=== PATIENT | female | born 1945 ===

== ENCOUNTER 2018-08-18 13:56 | Emergency (ER) | payer MEDICARE, OTHER ==
[2018-08-18 13:57] VITALS: BMI 22.2
[2018-08-18 14:23] VITALS: BP 180/79; PULSE 68; RESP 18; TEMP 98.1; O2SAT 98
[2018-08-18] MEDS ORDERED: Lidocaine 5% Patch TD STA (14:53)
--- NOTE | 2018-08-18 15:02 | C.PDOC ---
History Of Present Illness 73 y/o female with PMHx of osteopenia and arthritis presents to the ED complaining of atraumatic joint pain worsening for the past 3 days. She reports initially she had pain in the left arm/shoulder and began attending physical therapy. She notes for the last 3 weeks, she developed pain to the right shoulder and upper back, now described as sharp and shooting. Also complaining of joint pain in the right elbow and right fingers, associated with some swelling. No numbness, tingling, or focal weakness. She reports taking Tylenol w ithout relief. Time Seen by Provider: 08/18/18 14:24 Chief Complaint (Nursing): Upper Extremity Problem/Injury History Per: Patient History/Exam Limitations: no limitations Onset/Duration Of Symptoms: Days Current Symptoms Are (Timing): Worse Quality: Sharp Past Medical History Reviewed: Historical Data, Nursing Documentation, Vital Signs Vital Signs: Last Vital Signs Temp 98.1 F 08/18/18 14:19 Pulse 68 08/18/18 14:19 Resp 18 08/18/18 14:19 BP 180/79 H 08/18/18 14:19 Pulse Ox 98 08/18/18 14:19 - Medical History PMH: Arthritis, Asthma Surgical History: Denies: Pacemaker Other Surgeries: Hysterectomy, Thyroidectomy - [facility] COLONOSCOPY (09/13/98) ENDOSC POLYPECTOMY OF LG INTEST (08/12/03) EXCIS LESION OF MUSCLE (11/03/13) UNILAT THYROID LOBECTOMY (04/03/01) Family History: States: No Known Family Hx - Social History Hx Tobacco Use: No Hx Alcohol Use: No Hx Substance Use: No - Immunization History Hx Tetanus Toxoid Vaccination: No Hx Influenza Vaccination: Yes Hx Pneumococcal Vaccination: No Review Of Systems Constitutional: Negative for: Fever Cardiovascular: Negative for: Chest Pain Respiratory: Negative for: Shortness of Breath Musculoskeletal: Positive for: Shoulder Pain, Arm Pain, Back Pain, Hand Pain Neurological: Negative for: Weakness, Numbness, Incoordination Physical Exam - Physical Exam Appears: Non-toxic, No Acute Distress Skin: Warm, Dry, No Rash Head: Atraumatic, Normacephalic Eye(s): bilateral: Normal Inspection, PERRL, EOMI Oral Mucosa: Moist Neck: Decreased ROM, No Midline Cervical Tenderness, Paracervical Tenderness (bilateral paracervical tenderness and muscle spasm), Supple Chest: Symmetrical Respiratory: No Accessory Muscle Use, Other (speaking in complete sentences) Extremity: Right: Other (Swelling to the DIP joints on right hand), Bilateral: Atraumatic, Normal Color And Temperature, Normal ROM Pulses: Left Radial: Normal, Right Radial: Normal Neurological/Psych: Oriented x3, Normal Speech ED Course And Treatment O2 Sat by Pulse Oximetry: 98 (RA) Pulse Ox Interpretation: Normal Medical Decision Making Medical Decision Making: Plan: --Lidoderm patch --Motrin PO --Flexeril PO On re-exam, the patient reports improvement of symptoms. Lungs are CTA, heart is RRR, abdomen is soft, non-tender and tolerating PO well. Steady gait. Follow up with the medical doctor within 1-2 days without fail. Return if worsened. Disposition Counseled Patient/Family Regarding: Diagnosis, Need For Followup, Rx Given - Disposition Referrals: Juan Santana MD [Non-Staff] - Disposition: HOME/ ROUTINE Disposition Time: 16:27 Condition: STABLE Additional Instructions: Follow up with the medical doctor within 1-2 days. Return if worsened. Prescriptions: Cyclobenzaprine [Flexeril] 5 mg PO TID #21 tab Lidocaine 5% [Lidoderm] 1 each TP DAILY #10 patch Naproxen 375 mg PO BID #20 tablet Instructions: Osteoarthritis (DC) Forms: [facility] ([place]an) - POA Present On Arrival: None - Clinical Impression Clinical Impression: Joint pain - PA / CENTRAL LAB TECHNICIAN / Resident Statement MD/DO has reviewed & agrees with the documentation as recorded. - Scribe Statement The provider has reviewed the documentation as recorded by the Scribe (Salud Richardson) All medical record entries made by the Scribe were at my direction and personally dictated by me. I have reviewed the chart and agree that the record accurately reflects my personal performance of the history, physical exam, medical decision making, and the department course for this patient. I have also personally directed, reviewed, and agree with the discharge instructions and disposition.
[2018-08-18] MEDS ORDERED: Lidocaine 5% Patch TD ONE (15:09)
== END 2018-08-18 16:34 | disposition home or self-care (01) ==
LOC: C.ER 13:56
DX: M25.521 Pain in right elbow (principal)